=== PATIENT | female | born 1985 | race Caucasian/White ===

== ENCOUNTER 2019-10-15 15:02 | Outpatient (CLI) | payer OTHER, SELFPAY ==
[2019-10-15 15:23] LABS: Collection Time Urine 24 HOURS; Patient Weight 259 Lbs
[2019-10-15 17:47] LABS: Specific Gravity Ur 1.008; Total Volume 24 Hour Urine 3000 ml
[2019-10-15 17:49] LABS: Creatinine Clearance Urine 122.4 ml/min (75-125); Creatinine Urine 55.2 mg/dL; Total Protein Urine Random 13 mg/dL
[2019-10-27 11:05] LABS: Total Protein Urine 24 Hr 390 mg/24hr (0-149)
== END 2019-10-15 15:03 | disposition home or self-care (01) ==
LOC: ANHOBOP 15:08
PROVIDERS: Visit Provider Obstetrics & Gynecology
DX: O16.9 Unspecified maternal hypertension, unspecified trimester (principal)
CPT/HCPCS: 81050; 82575; 84156